=== PATIENT | female | born 1970 | race Caucasian/White ===

== ENCOUNTER 2018-02-17 23:18 | Emergency (ER) | payer BC ==
[2018-02-17 23:25] VITALS: BP 116/72
[2018-02-18] MEDS ORDERED: LIDOCAINE 1% INJ-PF (10 MG/ML) 30 ML SDV INJ ONE (00:04)
[2018-02-18] MEDS ORDERED: DIPH/PERTUSS(ACELL)/TETANUS VAC/PF 0.5 ML SYR (>=10YO) IM ONE (00:07)
--- NOTE | 2018-02-18 00:18 | ER Document Report ---
ED General - General Mode of Arrival: Ambulatory Information source: Patient TRAVEL OUTSIDE OF THE [place] IN LAST 30 DAYS: No - General Chief Complaint: Laceration Stated Complaint: FALL/RIGHT KNEE LACERATION Time Seen by Provider: 02/17/18 23:56 Notes: Patient is a 47-year-old female who presents with chief complaint of laceration. There is a laceration to her right knee that measures approximately 2 cm x 2 cm with no active bleeding at this time. Patient reports that she tripped and hit her knee on some rocks. Patient denies any other pain than superficial pain right at the laceration site. Patient is unsure of when her last tetanus shot was. Patient actively receiving chemotherapy for breast cancer. (CECILY ERWIN) - Related Data Allergies/Adverse Reactions: latex Allergy (Verified 02/17/18 23:55) Past Medical History - General Information source: Patient - Social History Smoking Status: Never Smoker Frequency of alcohol use: None Drug Abuse: None Lives with: Family Family History: Reviewed & Not Pertinent Patient has suicidal ideation: No Patient has homicidal ideation: No Renal/ Medical History: Denies: Hx Peritoneal Dialysis Malignancy Medical History: Reports: Hx Breast Cancer Past Surgical History: Reports: Hx Gynecologic Surgery - bilat ovaries Review of Systems - Review of Systems Constitutional: No symptoms reported EENT: No symptoms reported Cardiovascular: No symptoms reported Respiratory: No symptoms reported Gastrointestinal: No symptoms reported Genitourinary: No symptoms reported Female Genitourinary: No symptoms reported Musculoskeletal: No symptoms reported Skin: See HPI Hematologic/Lymphatic: No symptoms reported Neurological/Psychological: No symptoms reported Physical Exam - Vital signs Vitals: Temp Pulse Resp BP Pulse Ox 97.9 F 98 18 116/72 99 02/17/18 23:25 02/17/18 23:25 02/17/18 23:25 02/17/18 23:25 02/17/18 23:25 - Notes Notes: PHYSICAL EXAMINATION: GENERAL: Well-appearing, well-nourished and in no acute distress. HEAD: Atraumatic, normocephalic. EYES: Pupils equal round and reactive to light, extraocular movements intact, conjunctiva are normal. ENT: Nares patent, oropharynx clear without exudates. Moist mucous membranes. NECK: Normal range of motion, supple without lymphadenopathy LUNGS: Breath sounds clear to auscultation bilaterally and equal. No wheezes rales or rhonchi. HEART: Regular rate and rhythm without murmurs ABDOMEN: Soft, nontender, nondistended abdomen. No guarding, no rebound. No masses appreciated. Female : deferred Musculoskeletal: Normal range of motion, no pitting or edema. No cyanosis. NEUROLOGICAL: Cranial nerves grossly intact. Normal speech, normal gait. Normal sensory, motor exams PSYCH: Normal mood, normal affect. SKIN: Warm, Dry, normal turgor, no rashes or lesions noted, laceration to right leg just distal to right knee that is L-shaped measuring 2 cm in each direction , no active bleeding, wound is well approximated. (CECILY ERWIN) Course - Re-evaluation Re-evalutation: 47-year-old female patient presenting with laceration to her right knee after falling and hitting it in some rocks. Laceration repaired with sutures, see procedure note. Tdap ordered as patient is unsure of when her last one was. Patient has Tdap injection today, patient reports that she does not want to have pain in her arm as she has to drive home to [place] tomorrow. Patient understands this is the treatment recommendation. Patient states she will see her primary care doctor on Tuesday and get a Tdap there. (CECILY ERWIN) 02/18/18 05:56 Pt has absolutely no joint capsule involvement on exam. Her laceration was inferior to the right knee and located over her right lateral lower leg. (MANUEL GEORGE) - Vital Signs Vital signs: Temp Pulse Resp BP Pulse Ox 97.9 F 98 18 116/72 99 02/17/18 23:25 02/17/18 23:25 02/17/18 23:25 02/17/18 23:25 02/17/18 23:25 Procedures - Laceration/Wound Repair Right knee Wound length (cm): 4 Wound's Depth, Shape: Superficial Laceration pre-procedure: Sterile PPE donned Anesthetic type: 1% Lidocaine Volume Anesthetic (mLs): 6 Wound explored: Clean Irrigated w/ Saline (mLs): 30 Suture Size/Type: 4:0, Nylon Number of Sutures: 6 Layer Closure?: No Post-procedure wound care: Sterile dressing applied Post-procedure NV exam normal: Yes Complications: No Discharge - Discharge Clinical Impression: Laceration Condition: Stable Disposition: HOME, SELF-CARE Additional Instructions: Laceration Care Your laceration has been sutured to keep the skin edges aligned during healing. The time of suture removal depends on the nature and location of your cut. Please follow the care instructions the doctor has outlined for you and return for further care, according to the schedule you've been given. Keep the wound and dressing clean. Unless you were told otherwise, you may shower daily, blotting the wound dry with a clean, unused towel. At other times, If the dressing gets wet or blood soaked, remove it and blot the wound dry, then reapply a new dressing. Unless you were instructed otherwise, dressings should be changed at least daily. If any signs of infection occur (swelling, redness, increasing tenderness, red streaks, tender lumps in the armpit or groin above the laceration, or fever) , see the doctor immediately. Please return to the emergency department or your primary care provider in 10-14 days for suture removal. Please return earlier if you develop any signs of infection such as increased redness, swelling, foul-smelling drainage or fever. Prescriptions: Cephalexin Monohydrate [Keflex 500 mg Capsule] 500 mg PO Q6H 5 Days #20 capsule
== END 2018-02-18 01:42 | disposition home or self-care (01) ==
LOC: ER 23:18
PROC: 0HQKXZZ Repair Right Lower Leg Skin, External Approach (ICD-10-PCS; principal; 2018-02-17)
DX: S81.011A Laceration without foreign body, right knee, initial encounter (principal); W18.30XA Fall on same level, unspecified, initial encounter; Z91.040 Latex allergy status; Z23 Encounter for immunization
CPT/HCPCS: 99283